=== PATIENT | male | born 2000 | race African-American/Black ===

== ENCOUNTER 2025-06-01 08:49 | Emergency (ER) | payer SELFPAY ==
[2025-06-01] MEDS ORDERED: Dexamethasone 10 MG/ML VIAL ONE (09:12)
== END 2025-06-01 11:06 | disposition home or self-care (01) ==
LOC: CSHERS 08:49
DX: J02.9 Acute pharyngitis, unspecified (principal); Z55.6 Problems related to health literacy
CPT/HCPCS: 87081; 87428; 87430; 99284; J1100; Q0162